=== PATIENT | female | born 1990 | race Caucasian/White ===

== ENCOUNTER 2016-08-06 06:30 | Inpatient (IN) | payer OTHER ==
[~2016-08-06] VITALS: Ht 157.5 cm; Wt 83.3 kg
[~2016-08-06 06:30] MED LIST: ACET500C5 PO
[2016-08-06] MEDS ORDERED: LACTATED RINGER'S 1,000 ML IV PRN (07:00)
[2016-08-06 07:07] VITALS: Ht 157.5 cm; Wt 83.3 kg
[2016-08-06 07:13] VITALS: BP 141/89; PULSE 82; RESP 18
[2016-08-06] MEDS ORDERED: PREN1TAB62 PO (07:24)
[2016-08-06] MEDS ORDERED: LACTATED RINGER'S 1,000 ML IV SCH (07:24)
[2016-08-06] MEDS ORDERED: OXYTOCIN 30 UNITS/LR 500 ML IV PRN ×2 (07:30→14:30)
[2016-08-06] MEDS ORDERED: AMPICILLIN 2 GM/NS (PMX) 100 ML IV ONE (07:30)
[2016-08-06] MEDS ORDERED: OXYTOCIN 30 UNITS/LR 500 ML IV SCH ×3 (07:30)
[2016-08-06] MEDS ORDERED: ACETAMINOPHEN/CODEINE #3 TAB PO PRN (07:30)
[2016-08-06] MEDS ORDERED: BUTORPHANOL 2 MG INJ IV PRN ×2 (07:30)
[2016-08-06] MEDS ORDERED: LIDOCAINE 1% (MPF) 30 ML INJ INJ PRN (07:30)
[2016-08-06] MEDS ORDERED: CARBOPROST 250 MCG INJ IM PRN ×2 (07:30→14:30)
[2016-08-06] MEDS ORDERED: METHYLERGONOVINE 0.2 MG INJ IM PRN ×2 (07:30→14:30)
[2016-08-06] MEDS ORDERED: IBUPROFEN 600 MG TAB PO PRN (07:30)
[2016-08-06] MEDS ORDERED: MISOPROSTOL 200 MCG TAB PR PRN ×2 (07:30→14:30)
[2016-08-06 07:51] LABS: ADD SCAN DIFF NO
[2016-08-06 07:57] LABS: BASOPHILS % 0.2 % (0.0-2.0); EOSINOPHILS % 0.2 % (0.0-7.0); HEMATOCRIT 39.4 % (37.0-47.0); HEMOGLOBIN 13.5 g/dl (12.0-16.0); LYMPHOCYTES % 15.9 % (15.0-51.0); MEAN CORPUSCULAR HGB CONC 34.3 g/dl (32.0-37.0); MEAN CORPUSCULAR VOLUME 90.4 fl (82.0-101.0); MEAN PLATELET VOLUME 10.6 fl (7.4-10.4); MONOCYTE # 0.5 10^3/ul (0.3-0.9); NEUTROPHIL # 10.1 10^3/ul (1.6-7.5); NEUTROPHILS % 78.6 % (39.0-77.0); PLATELET COUNT 253 10^3/UL (140-415); RED BLOOD COUNT 4.36 10^6/ul (4.20-5.40); RED CELL DISTRIBUTION WIDTH 11.9 % (11.5-14.5); WHITE BLOOD COUNT 12.8 10^3/ul (4.8-10.8)
[2016-08-06 08:08] LABS: INR 0.84; PROTIME 11.5 Sec (12.2-14.2); PT RATIO 0.9
[2016-08-06 08:09] LABS: PARTIAL THROMBOPLASTIN TIME 24.9 Sec (25.0-35.0)
[2016-08-06 08:13] LABS: ALBUMIN 3.5 g/dl (3.3-4.9)
[2016-08-06 08:14] LABS: POTASSIUM 3.9 mmol/L (3.5-5.1)
[2016-08-06 08:16] LABS: ALBUMIN/GLOBULIN RATIO 0.97; BILIRUBIN,INDIRECT 0.2 mg/dl (0-1.1); BILIRUBIN,TOTAL 0.2 mg/dl (0.2-1.3); CREATININE 0.5 mg/dl (0.44-1.00); TOTAL PROTEIN 7.1 g/dl (6.1-8.1)
[2016-08-06 08:17] LABS: CALCIUM 9.3 mg/dl (8.4-10.2)
--- NOTE | 2016-08-06 08:33 | RADRPT ---
PROCEDURE: US OB biophysical profile. CLINICAL INDICATION: decreased movements, contractions TECHNIQUE: Multiple sonographic images of the pelvis were obtained. The images were reviewed on a PACS workstation. COMPARISON: 01/10/2016 FINDINGS: There is a single viable intrauterine gestation. Cardiac activity is present with 137 beats per min [place]. There is a vertex presentation. The placenta is anterior. There is no evidence of placental abruption. There is a normal amount of amniotic fluid with an FIFI = 8.3 cm. Biophysical profile: movement 2/2 tone 2/2. breathing 2/2 FIFI 2/2 Total 11/30 RPTAT: AA . IMPRESSION: Normal biophysical profile. . .Clement Valverde MD, MD Date Time Electronically viewed and signed by .Clement Valverde MD, on 08/06/2016 08:32 .S/
--- NOTE | 2016-08-06 08:33 | RADRPT ---
PROCEDURE: US OB. CLINICAL INDICATION: Size and dates TECHNIQUE: Multiple sonographic images of the pelvis and gravid uterus were obtained. The images were reviewed on a PACS workstation. COMPARISON: 01/10/2016 FINDINGS: There is a single viable intrauterine gestation. Cardiac activity is present with 140 beats per min [place]. There is a vertex presentation. The placenta is anterior. There is no evidence of placental abruption. There is a normal amount of amniotic fluid with an FIFI = 8.3 cm. Measurements were made in order to determine age. The results are as follows: BPD =9.0 cm HC =32.3 cm AC =33.9 cm FL =7.5 cm Estimated gestational age of approximately 37 weeks and 2 days based on ultrasound measurements. Clinical age: 38 weeks and 5 days. The estimated date of delivery is 08/25/16, based on ultrasound measurements. The EFW = 3266 g, 39.6%, based on LMP age. RPTAT: AA IMPRESSION: Single viable intrauterine gestation of approximately 37 weeks and 2 days based on ultrasound measu rements. .Clement Valverde MD, Date Time Electronically viewed and signed by .Clement Valverde MD, MD on 08/06/2016 08:33 .S/
[2016-08-06] MEDS ORDERED: NALOXONE (0.4 MG/ML) INJ IV PRN (09:00)
[2016-08-06] MEDS ORDERED: FENTAnyl 2MCG/ML-ROPIV 0.2% 100 ML BAG EPI SCH (09:00)
[2016-08-06] MEDS ORDERED: ONDANSETRON 4 MG INJ IV PRN (09:00)
[2016-08-06] MEDS ORDERED: EPHEDrine SULFATE 50 MG/5 ML SYG IV PRN (09:00)
[2016-08-06 09:14] LABS: ADD UMIC YES; URINE BILIRUBIN (Dip) NEGATIVE (NEGATIVE); URINE BLOOD (Dip) TRACE (NEGATIVE); URINE COLOR LT. YELLOW (YELLOW); URINE GLUCOSE (Dip) NEGATIVE (NEGATIVE); URINE KETONES (Dip) NEGATIVE (NEGATIVE); URINE LEUKOCYTE ESTERASE (Dip) NEGATIVE (NEGATIVE); URINE NITRITE (Dip) NEGATIVE (NEGATIVE); URINE TOTAL PROTEIN (Dip) TRACE (NEGATIVE); URINE UROBILINOGEN (Dip) 0.2 E.U./dL (0.1-1.0)
[2016-08-06 09:43] LABS: BACTERIA,URINE FEW
[2016-08-06 11:16] LABS: BARBITURATES Negative (NEGATIVE); BENZODIAZEPINES Negative (NEGATIVE); CANNABINOIDS Negative (NEGATIVE); COCAINE Negative (NEGATIVE); OPIATES Negative (NEGATIVE)
[2016-08-06] MEDS ORDERED: AMPICILLIN 1 GM/NS (PMX) 50 ML IV SCH (11:30)
--- NOTE | 2016-08-06 12:29 | LDN ---
Date/Time of Note Date/Time of Note DATE: 08/06/16 TIME: 12:28 Delivery Summary Assisted Vaginal Delivery: Vacuum (2 pop off distress) Placenta Delivered: Spontaneously Meconium: Thick Episiotomy: No Perineal laceration: 2 Anesthesia type: Epidural Estimated blood loss: 200 Sponge & Needle done & correct: Yes All needle counts correct: Yes Any foreign bodies felt in the: No Problems: Infant Delivery Information Apgars 1 Minute: 8 5 Minute: 9 Suctioning Nose & mouth suctioned at vicente: Yes Delee suction performed: Yes Umbilical Cord Umbilical cord with: 3 Vessels Cord presentations: no nuchal cord Cord Blood was obtained: Yes Mother & Baby Disposition Disposition Mom & Baby to Maternity; Good: Yes Mom transferred to: Other HALIMA SINGER M.D. Aug 06, 2016 12:29
--- NOTE | 2016-08-06 12:30 | HP ---
Date/Time of Note Date/Time of Note DATE: 08/06/16 TIME: 12:30 OB - History Hx of Present Free Text/Dictation @39+wks GA Labor : 1 Para: 0 Care: Good Care Ultrasounds: Normal mid trimester US Obstetrical Complications: None Medical Complications: None Past Family/Social History * Past Medical, Surgical, Family and Obstetric Histories reviewed from chart. OB Admission Exam Vital Signs Vital Signs Vital Signs Date Time Temp Pulse Resp B/P Pulse Ox O2 Delivery O2 Flow Rate FiO2 08/06/16 07:13 98.8 82 18 141/89 Room Air Physical Exam Abdomen: WNL Accelerations: Accelerations Present Decelerations: No Decelerations Varibility: Moderate Contractions on Admission: 6-10 Minutes Apart Last 72 hours Lab Results CBC & BMP 08/06/16 07:25 Liver Function Test 08/06/16 07:25 Alanine Aminotransferase (ALT/SGPT) 24 Albumin 3.5 Alkaline Phosphatase 216 H Aspartate Amino Transf (AST/SGOT) 21 Direct Bilirubin 0.00 Total Protein 7.1 OB Assessment/Plan Reason for admission: observation Plan: Expectant Management HALIMA SINGER M.D. Aug 06, 2016 12:30
[2016-08-06 14:00] VITALS: BP 126/73; PULSE 97; RESP 18
[2016-08-06] MEDS ORDERED: LACTATED RINGER'S 1,000 ML IV* SCH (14:25)
[2016-08-06] MEDS ORDERED: SENNA/DOCUSATE NA (8.6MG/50MG) TAB PO PRN (14:30)
[2016-08-06] MEDS ORDERED: LANOLIN 7 GM TUBE TOP PRN (14:30)
[2016-08-06] MEDS ORDERED: ZOLPIDEM 5 MG TAB PO PRN (14:30)
[2016-08-06] MEDS ORDERED: OXYCODONE/ASPIRIN (4.88/325) TAB PO PRN (14:30)
[2016-08-06] MEDS: IBUPROFEN 600 MG TAB PO SCH ×2 (17:57→23:48)
[2016-08-06] MEDS: WITCH HAZEL/GLYCERIN PAD PR PRN (17:58)
[2016-08-06 20:15] VITALS: BP 130/62; PULSE 99; RESP 20
[2016-08-06] MEDS: SENNA/DOCUSATE NA (8.6MG/50MG) TAB PO SCH (20:38)
[2016-08-06 23:45] VITALS: BP 132/69; PULSE 88; RESP 19
[2016-08-07 04:00] VITALS: BP 126/80; PULSE 77; RESP 20
[2016-08-07] MEDS: IBUPROFEN 600 MG TAB PO SCH ×3 (05:37→17:37)
[2016-08-07 07:05] LABS: ADD SCAN DIFF NO
[2016-08-07 07:12] LABS: BASOPHILS % 0.2 % (0.0-2.0); EOSINOPHILS # 0.1 10^3/ul (0.0-0.5); EOSINOPHILS % 0.5 % (0.0-7.0); HEMATOCRIT 34.8 % (37.0-47.0); HEMOGLOBIN 11.8 g/dl (12.0-16.0); LYMPHOCYTES # 2.9 10^3/ul (0.8-2.9); LYMPHOCYTES % 22.3 % (15.0-51.0); MEAN CORPUSCULAR HEMOGLOBIN 31.1 pg (29.0-33.0); MEAN CORPUSCULAR HGB CONC 33.9 g/dl (32.0-37.0); MEAN CORPUSCULAR VOLUME 91.8 fl (82.0-101.0); MEAN PLATELET VOLUME 10.6 fl (7.4-10.4); MONOCYTE # 0.9 10^3/ul (0.3-0.9); MONOCYTES % 7.1 % (0.0-11.0); NEUTROPHIL # 8.8 10^3/ul (1.6-7.5); PLATELET COUNT 223 10^3/UL (140-415); RED BLOOD COUNT 3.79 10^6/ul (4.20-5.40); RED CELL DISTRIBUTION WIDTH 12.3 % (11.5-14.5); WHITE BLOOD COUNT 12.8 10^3/ul (4.8-10.8)
[2016-08-07 08:00] VITALS: BP 121/71; PULSE 78; RESP 18
--- NOTE | 2016-08-07 08:12 | QN ---
Documentation Comment Laborist S: pt doing well. Ambulating, voiding, david POs w/o difficulty. Pt states has been difficult 2/2 baby's lack of interest in latching. S/p consult this morning. VS T 97.6 BP 126/80 P 77 RR 20 Gen: well appearing, NAD CV: RRR, nl s1s2 Resp: CTAB Abd: soft, NTND, NABS, FF 2FB below umbilicus Alejandra: deferred 2/2 baby on breast attempting to breastfeed Ext: symmetric BLE, nontender, 1+ pitting edema bilaterally Labs: Pre-op Hgb 12.5-> EBL 200ml -> PPD#1 Hgb 11.8 A/P: PPD#1 s/p VAVD w/2nd deg laceration/repair in the setting of distress ->Continue routine care -> support ->Plan for d/c home tomorrow ANYA REYNOLDS MD Aug 07, 2016 08:12
[2016-08-07] MEDS: SENNA/DOCUSATE NA (8.6MG/50MG) TAB PO SCH ×2 (09:34→21:51)
[2016-08-07 13:29] LABS: RUBELLA ANTIBODY - IGG <0.90 index
[2016-08-07 16:00] VITALS: BP 130/78; RESP 18
[2016-08-07 20:30] VITALS: BP 120/66; PULSE 81; RESP 18
[2016-08-08] MEDS: IBUPROFEN 600 MG TAB PO SCH ×3 (00:09→11:49)
[2016-08-08] MEDS: WITCH HAZEL/GLYCERIN PAD PR PRN (02:01)
[2016-08-08 04:00] VITALS: BP 129/68; PULSE 72; RESP 18
[2016-08-08 07:30] VITALS: BP 119/89; PULSE 76; RESP 19
[2016-08-08] MEDS ORDERED: DIPHTH/TET/ACEL PERTUSS (ADULT) 0.5 ML VIAL IM* ONE (09:00)
[2016-08-08] MEDS: SENNA/DOCUSATE NA (8.6MG/50MG) TAB PO SCH (10:02)
--- NOTE | 2016-08-08 12:45 | DS ---
Date/Time of Note Date/Time of Note DATE: 08/08/16 TIME: 12:44 Obstetrical Discharge Record Final Diagnosis Final Diagnosis: Term delivered Condition on Discharge Physical Assessment Voiding: Yes Bowel Movement: Yes Breast: Soft, non-tender Fundus: Firm Calf Tenderness: No Patient Condition: Stable KARINE PETERS MD Aug 08, 2016 12:45
== END 2016-08-08 14:20 | disposition home or self-care (01) | DRG 775 ==
LOC: OBT 06:30 → L-D 06:31 → OBT 06:50 → L-D 06:53 → PP1 14:22
PROVIDERS: ADMIT Obstetrics & Gynecology; ATTEND Obstetrics & Gynecology
PROC: 10E0XZZ Delivery of Products of Conception, External Approach (ICD-10-PCS; principal; 2016-08-06)
PROC: 0KQM0ZZ Repair Perineum Muscle, Open Approach (ICD-10-PCS; 2016-08-06)
DX: O70.1 Second degree perineal laceration during delivery (principal); Z37.0 Single live birth; Z3A.39 39 weeks gestation of pregnancy
CPT/HCPCS: 62319; 76815; 76818; 80053; 80307; 81001; 81003; 84112; 84560; 85025; 85384; 85610; 85730; 86592; 86703; 86762; 86900; 86901; 87086; 87340; 90715; 99464; G0463; J0290; J2590; J3010; J7120